=== PATIENT | female | born 1995 ===

== ENCOUNTER 2019-03-01 09:25 | Outpatient (REF) | payer MEDICAID, SELFPAY ==
[2019-03-04 13:35] LABS: Chlamydia Result Negative; GC Result Negative; Specimen Description vaginal
== END 2019-03-01 09:45 ==
LOC: NCHCN 09:25
PROVIDERS: PCP Family Medicine; Visit Provider Family Medicine
DX: Z11.3 Encounter for screening for infections with a predominantly sexual mode of transmission (principal)
CPT/HCPCS: 80048; 82306; 85027; 87491; 87591; 84443

== ENCOUNTER 2019-03-04 16:44 | Outpatient (REF) | payer MEDICAID, SELFPAY ==
[2019-03-04 22:04] LABS: HCT 43.9 % (36.0-46.0); HGB 14.7 g/dL (12.0-15.5); Mean Corp. HGB Concentration 33.5 g/dL (32.0-36.0); Mean Corpuscular Hemoglobin 29.7 pg (27.0-33.0); Mean Corpuscular Volume 88.7 fL (80-95); Mean Platelet Volume 10.9 fL (8.0-11.0); Platelet Count 235 x1000/uL (130-400); RBC 4.95 m/cumm (4.00-5.20); RBC Distribution Width 13.4 % (11.7-14.6); White Blood Cell Count 8.49 k/cumm (4.4-10.8)
[2019-03-04 22:24] LABS: Anion Gap 11.1 mmol/L (3-11); BUN 9 mg/dL (7-18); CO2 27.9 mmol/L (21.0-32.0); CREATININE 0.59 mg/dL (0.55-1.02); Calcium 9.2 mg/dL (8.5-10.1); Chloride 106 mmol/L (98-107); Glucose 89 mg/dL (70-100); Potassium 3.9 mmol/L (3.5-5.1); Sodium 145 mmol/L (136-145); TSH 1.24 uIU/mL (0.36-3.74)
[2019-03-04 22:59] LABS: Vitamin D 25 Total 18.3 ng/ml (30-100)
== END 2019-03-04 17:04 ==
LOC: NCHCN 16:44
PROVIDERS: PCP Family Medicine; Visit Provider Family Medicine
DX: R53.83 Other fatigue (principal); R63.5 Abnormal weight gain; Z00.00 Encounter for general adult medical examination without abnormal findings
CPT/HCPCS: 80048; 82306; 85027; 84443

== ENCOUNTER 2019-05-08 09:34 | Outpatient (REF) | payer MEDICAID, SELFPAY ==
[2019-05-09 07:01] LABS: Vitamin D 25 Total 27.5 ng/ml (30-100)
== END 2019-05-08 09:54 ==
LOC: NCHCO 09:34
PROVIDERS: PCP Family Medicine; Visit Provider Family Medicine
DX: E55.9 Vitamin D deficiency, unspecified (principal)
CPT/HCPCS: 82306

== ENCOUNTER 2020-03-10 13:03 | Outpatient (REF) | payer MEDICAID, SELFPAY ==
[2020-03-10 21:14] LABS: ALT 32 U/L (14-59); AST 18 U/L (15-37); Albumin 4.1 g/dL (3.4-5.0); Alkaline Phosphatase 55 U/L (46-116); Anion Gap 8.7 mmol/L (3-11); BUN 10 mg/dL (7-18); Bilirubin, Total 0.3 mg/dL (0.2-1.0); CO2 27.3 mmol/L (21.0-32.0); CREATININE 0.61 mg/dL (0.55-1.02); Calcium 9.3 mg/dL (8.5-10.1); Calculated LDL 109 mg/dL (<100); Chloride 106 mmol/L (98-107); Cholesterol 203 mg/dL (<200); Glucose 90 mg/dL (74-106); HDL Cholesterol 46 mg/dL (40-60); Sodium 142 mmol/L (136-145); TSH (W/Ref FT4) 1.83 uIU/mL (0.36-3.74); Total Protein 7.6 g/dL (6.4-8.2); Triglyceride 240 mg/dL (<150)
[2020-03-12 04:49] LABS: Vitamin D 25 Total 26.3 ng/ml (30-100)
== END 2020-03-10 13:23 ==
LOC: NCHCN 13:03
PROVIDERS: PCP Family Medicine; Visit Provider Family Medicine
DX: Z00.00 Encounter for general adult medical examination without abnormal findings (principal); E55.9 Vitamin D deficiency, unspecified; R63.5 Abnormal weight gain
CPT/HCPCS: 80053; 80061; 82306; 84443

== ENCOUNTER 2021-03-16 12:26 | Outpatient (REF) | payer MEDICAID, SELFPAY ==
--- NOTE | 2021-03-16 13:45 | PAPFT_PTH ---
PATIENT: Susi Snow LOC: [facility] U#:[id number] AGE/SX: 25/F ROOM: RE03/16/[address]: Nain Ferrell : 1995 BED: DIS: 03/16/2021 SPEC #: [id number] RECD: 03/17/21 13:10 STATUS: TARA REMohit #: [id number] LYNN: 03/16/21 13:[address]: Nain Ferrell DEPT: [facility] Cytology RECD BY: Rajani Jack Tissues: 1 - CX/ENDOCX FOR PAP SMEARS Procedures: PAP THIN PREP/[facility] Screening Comments: [id number]
== END 2021-03-16 12:27 | disposition home or self-care (01) ==
LOC: NCHCN 12:26
PROVIDERS: PCP Family Medicine; Visit Provider Family Medicine
DX: Z12.4 Encounter for screening for malignant neoplasm of cervix (principal); Z00.00 Encounter for general adult medical examination without abnormal findings
CPT/HCPCS: 88142